=== PATIENT | male | born 1960 | race Caucasian/White ===

== ENCOUNTER 2018-04-21 10:54 | Emergency (ER) | payer OTHER ==
[~2018-04-21] VITALS: Ht 177.8 cm; Wt 88.5 kg
[2018-04-21] MEDS ORDERED: ONDANSETRON ODT 4 MG PO ONE (12:00)
[2018-04-21 12:14] LABS: BASOPHILS # (AUTO) 0.06 x10^3/uL (0-0.1); BASOPHILS % (AUTO) 1 % (0-1); EOSINOPHILS # (AUTO) 0.25 x10^3/uL (0-0.4); EOSINOPHILS % (AUTO) 3 % (1-7); LYMPHOCYTES # (AUTO) 1.55 x10^3/uL (1-3.4); LYMPHOCYTES % (AUTO) 18 % (22-44); MD NO; MEAN CORPUSCULAR HEMOGLOBIN 32.8 pg (27.5-34.5); MEAN CORPUSCULAR VOLUME 96.5 fL (81-97); MEAN PLATELET VOLUME 8.4 fL (7.4-10.4); MONOCYTES # (AUTO) 0.57 x10^3/uL (0.2-0.8); MONOCYTES % (AUTO) 7 % (2-9); NEUTROPHILS # (AUTO) 6.07 x10^3/uL (1.8-6.8); NEUTROPHILS % (AUTO) 71 % (42-75); PLATELET COUNT 221 x10^3/uL (130-400); RED BLOOD COUNT 4.38 x10^6/uL (4.38-5.82); RED CELL DISTRIBUTION WIDTH 13.1 % (9.4-14.8)
[2018-04-21 12:22] LABS: ANION GAP 7 mmol/L (5-15); CALCIUM 9.6 mg/dL (8.5-10.1); CHLORIDE 105 mmol/L (98-107); CREATININE 1.14 mg/dL (0.7-1.3)
[2018-04-21] MEDS ORDERED: ONDANSETRON ODT 4 MG ONE (12:31)
[2018-04-21 12:34] VITALS: BP 114/69
--- NOTE | 2018-04-21 12:34 | NUR ---
ERP AT BS. PT STATES HE'S FEELING A LOT BETTER NOW.
[2018-04-21] MEDS ORDERED: ATOR40TA78 PO (12:43)
[2018-04-21] MEDS ORDERED: LISI1TAB3 PO (12:43)
[2018-04-21] MEDS ORDERED: ASPIRIN 81 MG TABLET EC PO ONE (13:00)
[2018-04-21 13:04] LABS: TROPONIN I < 0.015 ng/mL (0.000-0.045)
[2018-04-21] MEDS ORDERED: ASPIRIN 81 MG TABLET EC ONE ×2 (13:08→13:12)
--- NOTE | 2018-04-21 14:15 | NUR ---
PT OOB AND AMBULATED TO BATHROOM, UPRIGHT STEADY GAIT. RTD TO ROOM W/O INCIDENT. AWAITING 2ND TROPONIN DRAW AND RESULTS.
--- NOTE | 2018-04-21 14:44 | NUR ---
ERP AT BS FOR RE-EVAL.
[2018-04-21 15:09] LABS: TROPONIN I < 0.015 ng/mL (0.000-0.045)
--- NOTE | 2018-04-21 15:29 | NUR ---
Patient/Caregiver given discharge instructions and they have confirmed that they understand the instructions. Patient ambulatory with steady gait.
== END 2018-04-21 15:30 | disposition home or self-care (01) ==
LOC: ED 13:05
DX: R55 Syncope and collapse (principal); I10 Essential (primary) hypertension
CPT/HCPCS: 36415; 80048; 84484; 85025; 93005; 99284

== ENCOUNTER → 2018-05-29 | Outpatient (CLI) | payer OTHER ==
[~2018-05-29] MED LIST: ATOR40TA78 PO; LISI1TAB3 PO
== END | disposition home or self-care (01) ==
LOC: CFH 08:41
PROVIDERS: ATTEND Internal Medicine Cardiovascular Disease
DX: R55 Syncope and collapse (principal); I10 Essential (primary) hypertension; E78.5 Hyperlipidemia, unspecified; C44.90 Unspecified malignant neoplasm of skin, unspecified
CPT/HCPCS: 93306